=== PATIENT | male | born 1955 | race Caucasian/White ===

== ENCOUNTER 2016-11-29 09:51 | Inpatient (IN) | payer OTHER ==
[~2016-11-29] VITALS: Ht 195.6 cm; Wt 153.3 kg
[2017-01-05] MEDS ORDERED: CARVEDILOL6.25 MG PO (14:06)
[2017-01-05] MEDS ORDERED: CLOPIDOGREL75 MG PO (14:06)
[2017-01-05] MEDS ORDERED: ASPIR 8181 M1 PO (14:06)
[2017-01-05] MEDS ORDERED: TRULICITY0.75 MG/0. SC (14:06)
[2017-01-05] MEDS ORDERED: VENLAFAXINE H37.5 M3 PO (14:06)
[2017-01-05] MEDS ORDERED: ATORVASTATIN CA40 MG PO (14:07)
[2017-01-05] MEDS ORDERED: INVOKANA300 MG PO (14:07)
[2017-01-05] MEDS ORDERED: AMBIEN10 MG PO (14:07)
[2017-01-05] MEDS ORDERED: ALLOPURINOL300 MG PO (14:07)
[2017-01-05] MEDS ORDERED: GABAPENTIN300 MG PO (14:07)
[2017-01-05] MEDS ORDERED: LISINOPRIL10 MG PO (14:07)
[2017-01-05] MEDS ORDERED: OXYCODONE-APAP1 EACH PO (14:08)
[2017-01-05] MEDS ORDERED: BACLOFEN10 MG PO (14:08)
[2017-01-05] MEDS ORDERED: TRESIBA FL100 UNIT/1 SC (14:10)
[2017-01-06] MEDS ORDERED: TRESIBA FL200 UNIT/1 SC (12:08)
[2017-01-06] MEDS ORDERED: IRON325 M1 PO (12:18)
[2017-01-09 12:17] VITALS: BP 120/58
[2017-01-09 12:49] LABS: POINT-OF-CARE METER ID UU13113694
[2017-01-09 18:11] LABS: HEMATOCRIT 42.4 % (38.0-50.0)
[2017-01-09 18:15] LABS: POINT-OF-CARE METER ID UU13113675
[2017-01-09 20:02] VITALS: BP 117/57
[2017-01-09 22:05] LABS: POINT-OF-CARE METER ID UU14174215
[2017-01-10 00:25] VITALS: BP 133/64
[2017-01-10 03:55] VITALS: BP 125/56
[2017-01-10 06:42] LABS: HEMATOCRIT 38.1 % (38.0-50.0); MCV 91.6 FL (86-99)
[2017-01-10 07:03] LABS: ANION GAP 8 MEQ/L (2-14); CHLORIDE 101 MEQ/L (99-109); GFR ESTIMATE (CALCULATED) > 59 mL/min/; GLUCOSE 190 mg/dL (70-99); POTASSIUM 4.6 MEQ/L (3.7-5.4); SAMPLE HEMOLYSIS CHECK 0; SAMPLE ICTERIC CHECK 0; SAMPLE LIPEMIA CHECK 0; SODIUM 136 MEQ/L (136-147); UREA NITROGEN (BUN) 13 mg/dL (9-23)
[2017-01-10 07:23] LABS: POINT-OF-CARE METER ID UU14174215
[2017-01-10 07:56] VITALS: BP 125/59
[2017-01-10 11:27] LABS: POINT-OF-CARE METER ID UU14174215
[2017-01-10 11:36] VITALS: BP 80/48
[2017-01-10 15:47] VITALS: BP 110/51
[2017-01-10 16:44] LABS: POINT-OF-CARE METER ID UU14174215
[2017-01-10 20:09] VITALS: BP 140/62
[2017-01-10 21:54] LABS: POINT-OF-CARE METER ID UU14174215
[2017-01-11 00:27] VITALS: BP 124/60
[2017-01-11 04:30] VITALS: BP 110/57
[2017-01-11 07:21] LABS: POINT-OF-CARE METER ID UU14174215
[2017-01-11 08:24] VITALS: BP 128/59
[2017-01-11 08:27] VITALS: BP 122/79
[2017-01-11] MEDS ORDERED: CELECOXIB200 MG PO (09:06)
[2017-01-11] MEDS ORDERED: ELIQUIS2.5 MG PO (09:06)
[2017-01-11] MEDS ORDERED: OXYCODONE HCL5 MG PO (09:06)
[2017-01-11 11:28] LABS: POINT-OF-CARE METER ID UU14174215
[2017-01-11 11:54] VITALS: BP 100/51
== END 2017-01-11 13:21 | DRG 470 ==
LOC: 2SOUTH → ENRESERV 01-08 22:20 → 2SOUTH 01-09 10:24 → ENRESERV 01-09 15:00 → 3WEST 01-09 20:07 → 2SOUTH 01-31 09:14
PROVIDERS: Orthopaedic Surgery
PROC: 0SRB04A Replacement of Left Hip Joint with Ceramic on Polyethylene Synthetic Substitute, Uncemented, Open Approach (ICD-10-PCS; principal; 2017-01-09)
DX: M16.12 Unilateral primary osteoarthritis, left hip (principal); I10 Essential (primary) hypertension; M10.9 Gout, unspecified; E11.9 Type 2 diabetes mellitus without complications; Z87.891 Personal history of nicotine dependence; I25.2 Old myocardial infarction; Z79.02 Long term (current) use of antithrombotics/antiplatelets; Z79.4 Long term (current) use of insulin; Z79.82 Long term (current) use of aspirin; Z88.2 Allergy status to sulfonamides
CPT/HCPCS: 73501; 80048; 82948; 85014; 85018; C1713; J0131; J0690; J1170; J1200; J1815; J2250; J2405; J2550; J3010; J7030; J7050